=== PATIENT | male | born 1995 | race American Indian/Alaskan Native ===

== ENCOUNTER 2021-02-08 21:55 | Emergency (ER) | payer SELFPAY ==
[2021-02-08] MEDS ORDERED: ACETAMINOPHEN 500 MG TAB PO ONE (22:14)
--- NOTE | 2021-02-08 22:42 | XRay Report ---
Left shoulder single view INDICATION: Left shoulder pain IMPRESSION: No fracture or subluxation of the left shoulder is identified. Signer Name: Panda Frausto MD Signed: 02/08/2021 10:38 PM Workstation Name: [id number]
--- NOTE | 2021-02-08 22:47 | XRay Report ---
Left hip 2 views INDICATION: Left hip pain following fall IMPRESSION: No fracture or subluxation identified Signer Name: Panda Frausto MD Signed: 02/08/2021 10:43 PM Workstation Name: [id number]
--- NOTE | 2021-02-08 23:16 | Cat Scan Report ---
CT head without contrast INDICATION : Headache following injury TECHNIQUE: Axial imaging performed from the skull apex through the skull base without the use of con trast. All CT examinations performed at this facility utilize dose modulation, iterative reconstruct ion or weight-based dosing, when appropriate, to reduce radiation dose to as low as reasonably achiev able. COMPARISON: None FINDINGS: No acute intracranial hemorrhage or parenchymal abnormality. Ventricles are normal in si ze and appear symmetric. Soft tissues including the orbits appear normal. No acute osseous abnorm ality. Sinuses and mastoid air cells are clear. IMPRESSION: No acute abnormality. Signer Name: Panda Frausto MD Signed: 02/08/2021 11:11 PM Workstation Name: [id number]
--- NOTE | 2021-02-08 23:55 | Emergency Department Report ---
ED Fall HPI - General Chief Complaint: Head Injury Stated Complaint: HEAD INJURY Source: patient Mode of arrival: Ambulatory - History of Present Illness Initial Comments: Patient is a 25-year-old -[place] male with no past medical history presents to the ED with complaint of acute onset persistent headache, left shoulder pain and left hip pain as well as bleeding left temporal scalp laceration after he slipped off and fell off a hover board that he was riding on about 2 hours ago. Patient states that in the process he fell on the concrete and hit his head and sustained a bleeding left temporal scalp laceration, left shoulder pain and left hip pain. Patient states that he felt dazed after the fall and may have had a brief loss of consciousness. Patient states that he is up-to-date with all his tetanus vaccinations. Patient patient denies dizziness, syncope, seizures, nausea and vomiting, change in vision, neck pain, shortness of breath, chest pain, abdominal pain, numbness and tingling or weakness of upper and lower extremities bilaterally, low back pain, nosebleed or dental injuries. MD Complaint: fall (Left shoulder and hip pain), other (left temporal scalp laceration;) -: Sudden, hour(s) (2) Fall From: standing, other (Fell off a hover board) When Fall Occurred: 1-3 hours [employer] Fall Witnessed: yes, by family Place Fall Occurred: home, street Loss of Consciousness: yes (Startled and dazed) Prolonged Down Time?: no Symptoms Prior to Fall: none Location: head (Left temporal scalp laceration), pelvis (Left hip pain), other (Left shoulder and hip pain) Location - Extremities: Left: Shoulder (Left shoulder pain), Thigh (Left hip and thigh pain) Severity: severe Severity scale (0 -10): 8 Quality: sharp, aching Context: tripped/slipped (Slipped and fell off a hover board) Associated Symptoms: headache. denies: neck pain, numbness, weakness, chest paint, shortness of breath, abdominal pain, hematuria, lightheaded, vertigo, confusion - Related Data Previous Rx's Medication Instructions Recorded Last Taken Type Baclofen 20 mg PO Q12H PRN #21 tablet 02/09/21 Unknown Rx Ibuprofen [Motrin] 800 mg PO Q8HR PRN #30 tablet 02/09/21 Unknown Rx cephALEXin [Keflex] 500 mg PO Q12HR #20 cap 02/09/21 Unknown Rx Allergies Allergy/AdvReac Type Severity Reaction Status Date / Time No Known Allergies Allergy Unverified 02/08/21 23:29 ED Review of Systems ROS: Stated complaint: HEAD INJURY Other details as noted in HPI Constitutional: denies: chills, fever Eyes: denies: eye pain, eye discharge, vision change ENT: other (Bleeding left temporal scalp laceration). denies: ear pain, throat pain Respiratory: denies: cough, shortness of breath, wheezing Cardiovascular: denies: chest pain, palpitations Endocrine: no symptoms reported Gastrointestinal: denies: abdominal pain, nausea, vomiting, diarrhea Genitourinary: denies: urgency, dysuria Musculoskeletal: arthralgia (Left hip and shoulder pain). denies: back pain, joint swelling Skin: other (Bleeding left temporal scalp laceration). denies: rash, lesions Neurological: headache. denies: weakness, paresthesias Psychiatric: denies: anxiety, depression Hematological/Lymphatic: denies: easy bleeding, easy bruising ED Past Medical Hx - Past Medical History Previous Medical History?: No - Surgical History Past Surgical History?: No - Social History Smoking Status: Never Smoker Substance Use Type: None - Medications Home Medications: Home Medications Medication Instructions Recorded Confirmed Last Taken Type Baclofen 20 mg PO Q12H PRN #21 tablet 02/09/21 Unknown Rx Ibuprofen [Motrin] 800 mg PO Q8HR PRN #30 tablet 02/09/21 Unknown Rx cephALEXin [Keflex] 500 mg PO Q12HR #20 cap 02/09/21 Unknown Rx ED Physical Exam - General Limitations: No Limitations General appearance: alert, in no apparent distress - Head Head exam: Present: other (Bleeding left temporal scalp 4 cm laceration) - Eye Eye exam: Present: normal appearance, PERRL, EOMI Pupils: Present: normal accommodation - ENT ENT exam: Present: normal exam, normal orophraynx, mucous membranes moist, TM's normal bilaterally, normal external ear exam - Neck Neck exam: Present: normal inspection, full ROM. Absent: tenderness - Respiratory Respiratory exam: Present: normal lung sounds bilaterally. Absent: respiratory distress, wheezes, rales, rhonchi, chest wall tenderness, accessory muscle use, decreased breath sounds, prolonged expiratory - Cardiovascular Cardiovascular Exam: Present: regular rate, normal rhythm, normal heart sounds. Absent: systolic murmur, diastolic murmur, rubs, gallop - GI/Abdominal GI/Abdominal exam: Present: soft, normal bowel sounds. Absent: tenderness, guarding, rebound, hyperactive bowel sounds, hypoactive bowel sounds, organomegaly - Extremities Exam Extremities exam: Present: normal inspection, full ROM, tenderness (Palpable left shoulder and hip tenderness), normal capillary refill. Absent: pedal edema, joint swelling, calf tenderness - Back Exam Back exam: Present: normal inspection, full ROM. Absent: tenderness, CVA tenderness (R), CVA tenderness (L), muscle spasm, paraspinal tenderness, vertebral tenderness - Neurological Exam Neurological exam: Present: alert, oriented X3, CN II-XII intact, normal gait, reflexes normal - Psychiatric Psychiatric exam: Present: normal affect, normal mood - Skin Skin exam: Present: warm, dry, normal color, other (Bleeding 4 cm left temporal scalp laceration). Absent: rash - Laceration /Wound Repair Left Temporal Wound Location: head (Left temporal scalp laceration) Wound Length (cm): 4 Wound's Depth, Shape: superficial, linear Wound Explored: contaminated Irrigated w/ Saline (ccs): 200 Betadine Prep?: Yes Wound Debrided: extensive Wound Repaired With: sutures (Sherrie) Number of Sutures: 6 Layer Closure?: No Sterile Dressing Applied?: No ED Medical Decision Making - Radiology Data Radiology results: report reviewed, [place] [id number] Cat Scan Report Signed Patient: FELIPE VALENCIA MR#: [id number] 0 : 1995 Acct:[id number] Age/Sex: 25 / M ADM Date: 02/08/21 Loc: ED Attending Dr: Ordering Physician: NUHA TRIPLETT Date of Service: 02/08/21 Procedure(s): CT head/brain wo con Accession Number(s): [id number] cc: NUHA TRIPLETT CT head without contrast INDICATION : Headache following injury TECHNIQUE: Axial imaging performed from the skull apex through the skull base without the use of contrast. All CT examinations performed at this facility utilize dose modulation, iterative reconstruction or weight-based dosing, when appropriate, to reduce radiation dose to as low as reasonably achievable. COMPARISON: None FINDINGS: No acute intracranial hemorrhage or parenchymal abnormality. Ventricles are normal in size and appear symmetric. Soft tissues including the orbits appear normal. No acute osseous abnormality. Sinuses and mastoid air cells are clear. IMPRESSION: No acute abnormality. Signer Name: Panda Frausto MD Signed: 02/08/2021 11:11 PM Workstation Name: [id number] Transcribed By: SACHA Dictated By: Panda Frausto MD Electronically Authenticated By: Panda Frausto MD Signed Date/Time: 02/08/212310 DD/ 09 TD/TT: [facility] [address] [place] [address] XRay Report Signed Patient: FELIPE VALENCIA MR#: [id number] 0 : 1995 Acct:[id number] Age/Sex: 25 / M ADM Date: 02/08/21 Loc: ED Attending Dr: Ordering Physician: NUHA TRIPLETT Date of Service: 02/08/21 Procedure(s): XR hip 2-3V LT Accession Number(s): [id number] cc: NUHA TRIPLETT Fluoro Time In Minutes: Left hip 2 views INDICATION: Left hip pain following fall IMPRESSION: No fracture or subluxation identified Signer Name: Panda Frausto MD Signed: 02/08/2021 10:43 PM Workstation Name: [id number] Transcribed By: SACHA Dictated By: Panda Frausto MD Electronically Authenticated By: Panda Frausto MD Signed Date/Time: 02/08/212242 DD/ 40 TD/TT: [facility] [address] [place] [address] XRay Report Signed Patient: FELIPE VALENCIA MR#: [id number] 0 : 1995 Acct:[id number] Age/Sex: 25 / M ADM Date: 02/08/21 Loc: ED Attending Dr: Ordering Physician: NUHA TRIPLETT Date of Service: 02/08/21 Procedure(s): XR shoulder 2+V LT Accession Number(s): [id number] cc: NUHA TRIPLETT Fluoro Time In Minutes: Left shoulder single view INDICATION: Left shoulder pain IMPRESSION: No fracture or subluxation of the left shoulder is identified. Signer Name: Panda Frausto MD Signed: 02/08/2021 10:38 PM Workstation Name: [id number] Transcribed By: BC Dictated By: Panda Frausto MD Electronically Authenticated By: Panda Frausto MD Signed Date/Time: 02/08/212237 DD/ 36 TD/TT: - Medical Decision Making This is a 25-year-old -[place] male with no past medical history presents to the ED with complaint of acute onset persistent headache, left shoulder pain and left hip pain as well as bleeding left temporal scalp laceration after he slipped off and fell off a hover board that he was riding on about 2 hours ago. Patient states that in the process he fell on the concrete and hit his head and sustained a bleeding left temporal scalp laceration, left shoulder pain and left hip pain. Patient states that he felt dazed after the fall and may have had a brief loss of consciousness. Patient states that he is up-to-date with all his tetanus vaccinations. In the ED, patient is alert and oriented x3 and is not in any distress. Patient was treated for pain in the ED and left shoulder x-ray showed no acute fractures or subluxations. Left hip x- ray also showed no acute fractures and subluxations. The head CT scan without contrast showed no acute intracranial abnormalities or hemorrhage. The left temporal scalp laceration wound was cleaned extensively with normal saline and Betadine solution. The wound was then closed with sherrie per protocol and the patient tolerated the procedure well. On reevaluation, patient's pain is well controlled with medications. Patient is ambulatory in the ED with no difficulty. Patient was therefore discharged home on pain medications and prophylactic antibiotics and advised to follow-up with his primary care physician in 3 to 5 days for reevaluation. Patient was advised to return to the ED immediately if his symptoms get worse. - Differential Diagnosis Scalp laceration; scalp contusion; shoulder sprain; hip contusion; Critical care attestation.: If time is entered above; I have spent that time in minutes in the direct care of this critically ill patient, excluding procedure time. ED Disposition Clinical Impression: Laceration of scalp Qualifiers: Encounter type: initial encounter Qualified Code(s): S01.01XA - Laceration without foreign body of scalp, initial encounter Contusion of scalp Qualifiers: Encounter type: initial encounter Qualified Code(s): S00.03XA - Contusion of scalp, initial encounter Sprain of left hip Qualifiers: Encounter type: initial encounter Qualified Code(s): S73.102A - Unspecified sprain of left hip, initial encounter Sprain of left shoulder Qualifiers: Encounter type: initial encounter Shoulder sprain type: unspecified sprain Qualified Code(s): S43.402A - Unspecified sprain of left shoulder joint, initial encounter Disposition: DC-01 TO HOME OR SELFCARE Is pt being admited?: No Does the pt Need Aspirin: No Condition: Stable Instructions: Facial or Scalp Contusion, [id number], Sutures, [place], or Adhesive Wound Closure, [id number], Shoulder Sprain, Hip Sprain Additional Instructions: The head CT scan without contrast showed no acute intracranial abnormalities or hemorrhage. The left shoulder x-ray showed no acute fractures or subluxations. The left hip x-ray also showed no acute fractures and subluxations. Therefore your injuries are likely musculoskeletal following the fall. Therefore take medications with food, drink plenty of fluids and follow-up with your primary care physician in 5 to 7 days for reevaluation. Return to the ED immediately if symptoms get worse. Otherwise return to the ED or to your primary care physician in 8 to 10 days for sherrie removal. Prescriptions: Baclofen 20 mg PO Q12H PRN #21 tablet PRN Reason: Muscle Spasm cephALEXin [Keflex] 500 mg PO Q12HR #20 cap Ibuprofen [Motrin] 800 mg PO Q8HR PRN #30 tablet PRN Reason: Pain , Severe (7-10) Referrals: [facility] [Provider Group] - 7-10 days Time of Disposition: 00:02 Print Language: SPANISH
[2021-02-09 00:06] VITALS: BP 138/77
== END 2021-02-09 00:32 | disposition home or self-care (01) ==
LOC: ED 21:55
DX: S01.01XA Laceration without foreign body of scalp, initial encounter (principal); S73.192A Other sprain of left hip, initial encounter; S43.492A Other sprain of left shoulder joint, initial encounter; Z79.899 Other long term (current) drug therapy; W01.0XXA Fall on same level from slipping, tripping and stumbling without subsequent striking against object, initial encounter; Y93.89 Activity, other specified; Y92.89 Other specified places as the place of occurrence of the external cause; Y99.8 Other external cause status
CPT/HCPCS: 70450; 99284